=== PATIENT | female | born 1970 | race Caucasian/White ===

== ENCOUNTER 2017-11-26 17:25 | Emergency (ER) | payer MEDICAID ==
[~2017-11-26] VITALS: Ht 165.1 cm; Wt 90.0 kg
[2017-11-26 18:09] VITALS: BP 138/76
== END 2017-11-26 19:43 | disposition home or self-care (01) ==
LOC: ER 17:26
DX: S92.902A Unspecified fracture of left foot, initial encounter for closed fracture (principal); X58.XXXA Exposure to other specified factors, initial encounter; Y93.89 Activity, other specified; Y92.89 Other specified places as the place of occurrence of the external cause; Y99.8 Other external cause status
CPT/HCPCS: 99281

== ENCOUNTER 2017-12-05 13:36 | Outpatient (CLI) | payer MEDICAID ==
[2017-12-05 13:40] VITALS: BP 135/80
== END 2017-12-05 14:35 | disposition home or self-care (01) ==
LOC: ORTHO 13:36
PROVIDERS: ATTEND Nurse Practitioner Family
DX: S92.335A Nondisplaced fracture of third metatarsal bone, left foot, initial encounter for closed fracture (principal); X58.XXXA Exposure to other specified factors, initial encounter; Y93.89 Activity, other specified; Y92.89 Other specified places as the place of occurrence of the external cause; Y99.8 Other external cause status
CPT/HCPCS: 73630; 99213

== ENCOUNTER 2017-12-26 11:15 | Outpatient (CLI) | payer MEDICAID ==
[2017-12-26 11:23] VITALS: BP 128/72
== END 2017-12-26 12:24 | disposition home or self-care (01) ==
LOC: ORTHO 11:15
PROVIDERS: ATTEND Nurse Practitioner Family
DX: S92.332D Displaced fracture of third metatarsal bone, left foot, subsequent encounter for fracture with routine healing (principal); M77.32 Calcaneal spur, left foot; X58.XXXD Exposure to other specified factors, subsequent encounter
CPT/HCPCS: 73630; 99213

== ENCOUNTER 2018-01-21 13:34 | Outpatient (CLI) | payer MEDICAID ==
[2018-01-21 13:31] VITALS: BP 127/81
== END 2018-01-21 14:05 | disposition home or self-care (01) ==
LOC: ORTHO 13:34
PROVIDERS: ATTEND Nurse Practitioner Family
DX: S92.335D Nondisplaced fracture of third metatarsal bone, left foot, subsequent encounter for fracture with routine healing (principal); Z91.19 Patient's noncompliance with other medical treatment and regimen; X58.XXXD Exposure to other specified factors, subsequent encounter
CPT/HCPCS: 73630; 99213

== ENCOUNTER 2018-02-25 10:28 | Outpatient (CLI) | payer MEDICAID ==
[2018-02-25 10:45] VITALS: BP 133/83
== END 2018-02-25 11:20 | disposition home or self-care (01) ==
LOC: ORTHO 10:28
PROVIDERS: ATTEND Nurse Practitioner Family
DX: S92.325D Nondisplaced fracture of second metatarsal bone, left foot, subsequent encounter for fracture with routine healing (principal); X58.XXXD Exposure to other specified factors, subsequent encounter
CPT/HCPCS: 73630; 99213